=== PATIENT | male | born 1975 | race Caucasian/White ===

== ENCOUNTER 2017-11-25 00:42 | Emergency (ER) | payer OTHER ==
[~2017-11-25] VITALS: Ht 180.3 cm; Wt 109.1 kg
[~2017-11-25 00:42] MED LIST: ABILIFY10 MG PO; ADDERALL XR 2020 MG PO; ATARAX,VISTARIL50 MG PO; BUSPAR10 MG PO; CARBAMAZEPINE200 MG PO; CELEXA40 MG PO; Celexa PO; LEXAPRO20 MG PO; LISINOPRIL20 MG PO; MOTRIN800 MG PO; SIMVASTATIN40 MG PO; TEGRETOL200 MG PO; XANAX0.5 MG PO
[2017-11-25] MEDS ORDERED: KEFLEX500 MG PO (01:43)
[2017-11-25] MEDS ORDERED: ULTRAM50 MG PO (01:43)
[2017-11-25] MEDS ORDERED: MOTRIN600 MG PO (01:43)
[2017-11-25 03:13] VITALS: BP 151/101
== END 2017-11-25 03:15 | disposition home or self-care (01) ==
LOC: EME 00:42
PROC: 3E0234Z Introduction of Serum, Toxoid and Vaccine into Muscle, Percutaneous Approach (ICD-10-PCS; principal; 2017-11-25)
PROC: 0HQNXZZ Repair Left Foot Skin, External Approach (ICD-10-PCS; principal; 2017-11-25)
PROC: 0H9RXZZ Drainage of Toe Nail, External Approach (ICD-10-PCS; principal; 2017-11-25)
DX: S92.422A Displaced fracture of distal phalanx of left great toe, initial encounter for closed fracture (principal); S90.212A Contusion of left great toe with damage to nail, initial encounter; W20.8XXA Other cause of strike by thrown, projected or falling object, initial encounter; Y92.89 Other specified places as the place of occurrence of the external cause; Y99.0 Civilian activity done for income or pay; Z23 Encounter for immunization
CPT/HCPCS: 73630; 99281; 99284